=== PATIENT | female | born 1985 | race African-American/Black ===

== ENCOUNTER 2016-06-23 15:23 | Emergency (ER) | payer SELFPAY ==
[~2016-06-23 15:23] MED LIST: PERC7.5T13 PO
[2016-06-23 15:26] VITALS: BP 156/77; PULSE 93; RESP 16; TEMP 97.9; O2SAT 98
--- NOTE | 2016-06-23 16:24 | PD ---
HPI Chief Complaint: Chest Pain Time Seen by Provider: 16:16 Travel History International Travel<30 days: No Contact w/Intl Traveler<30days: No Traveled to known affect area: No History of Present Illness HPI The patient is a 30-year-old [place] female who presents emergency department for chest pain. The patient states she was driving her car when she developed anterior chest pain. The chest pain started at 1:30, has been present for almost 3 hours, constant, sharp, worse with inspiration, and minimally alleviated at rest. The patient states she feels short of breath because it hurts when she takes a deep breath, but denies any shortness of breath at rest or when not breathing deeply. The patient does note a dry nonproductive cough secondary to the pain. The patient denies any nausea, vomiting, or diaphoresis. The patient denies any history of pulmonary embolism , DVT, recent surgery, recent hospitalization, recent prolonged travel. The patient denies any edema of the lower extremities. The patient denies any history of hypertension, hyperlipidemia, diabetes, or previous CAD. The pain is worse with inspiration and palpation. PFSH Past Medical History Medical History: Denies Significant Hx Asthma: Yes Diminished Hearing: No Immunizations Current: Yes ?: Not : 0 Past Surgical History Surgical History: No Previous Surgery Social History Alcohol Use: No Tobacco Use: No Substance Use: No Allergies-Medications (Allergen,Severity, Reaction): Coded Allergies: No Known Allergies (Verified , 06/23/16) Reported Meds & Prescriptions Reported Meds & Active Scripts Active No Active Prescriptions or Reported Medications Review of Systems Except as stated in HPI: all other systems reviewed are Neg General / Constitutional: No: Fever HENT: No: Lightheadedness Cardiovascular: Positive: Chest Pain or Discomfort Respiratory: Positive: Cough, Shortness of Breath, Pleuritic Pain Gastrointestinal: No: Nausea, Vomiting, Abdominal Pain Musculoskeletal: No: Myalgias, Edema Skin: No Rash Neurologic: No: Dizziness Physical Exam Narrative GENERAL: Awake, alert, pleasant 30-year-old female who appears her stated age and is in no acute respiratory distress. SKIN: Warm and dry. HEAD: Atraumatic. Normocephalic. EYES: Pupils equal and round. No scleral icterus. No injection or drainage. ENT: No nasal bleeding or discharge. Mucous membranes pink and moist. NECK: Trachea midline. No JVD. CARDIOVASCULAR: Regular rate and rhythm. No murmur appreciated. Palpation of the sternal border bilaterally reproduces pain. RESPIRATORY: No accessory muscle use. Clear to auscultation. Breath sounds equal bilaterally. GASTROINTESTINAL: Abdomen soft, obese, no rebound tenderness. MUSCULOSKELETAL: No obvious deformities. No clubbing. No cyanosis. No edema. Calves are soft bilaterally. NEUROLOGICAL: Awake and alert. No obvious cranial nerve deficits. Motor grossly within normal limits. Normal speech. PSYCHIATRIC: Appropriate mood and affect; insight and judgment normal. Data Data Last Documented VS Vital Signs Date Time Temp Pulse Resp B/P Pulse Ox O2 Delivery O2 Flow Rate FiO2 06/23/16 16:18 100 2 06/23/16 16:14 73 20 Room Air 06/23/16 15:26 97.9 156/77 Orders Electrocardiogram (06/23/16 15:27) Basic Metabolic Panel (Bmp) (06/23/16 16:16) Ckmb (Isoenzyme) Profile (06/23/16 16:16) Complete Blood Count With Diff (06/23/16 16:16) Comprehensive Metabolic Panel (06/23/16 16:16) D-Dimer (06/23/16 16:16) Magnesium (Mg) (06/23/16 16:16) Prothrombin Time / Inr (Pt) (06/23/16 16:16) Act Partial Throm Time (Ptt) (06/23/16 16:16) Troponin I (06/23/16 16:16) Chest, Single Ap (06/23/16 16:16) Ecg Monitoring (06/23/16 16:16) Bilateral Bp Monitoring (06/23/16 16:16) Iv Access Insert/Monitor (06/23/16 16:16) Oximetry (06/23/16 16:16) Oxygen Administration (06/23/16 16:16) Morphine Inj (Morphine Inj) (06/23/16 16:30) Sodium Chloride 0.9% Flush (Ns Flush) (06/23/16 16:30) Sodium Chlorid 0.9% 500 Ml Inj (Ns 500 M (06/23/16 16:30) Ondansetron Inj (Zofran Inj) (06/23/16 16:30) Ketorolac Inj (Toradol Inj) (06/23/16 16:30) CKMB (06/23/16 16:20) CKMB% (06/23/16 16:20) Labs Laboratory Tests Test 06/23/16 16:20 White Blood Count 10.6 TH/MM3 Red Blood Count 4.66 MIL/MM3 Hemoglobin 12.2 GM/DL Hematocrit 37.7 % Mean Corpuscular Volume 80.8 FL Mean Corpuscular Hemoglobin 26.1 PG Mean Corpuscular Hemoglobin 32.3 % Concent Red Cell Distribution Width 14.8 % Platelet Count 309 TH/MM3 Mean Platelet Volume 8.9 FL Neutrophils (%) (Auto) 64.1 % Lymphocytes (%) (Auto) 26.4 % Monocytes (%) (Auto) 6.4 % Eosinophils (%) (Auto) 2.6 % Basophils (%) (Auto) 0.5 % Neutrophils # (Auto) 6.8 TH/MM3 Lymphocytes # (Auto) 2.8 TH/MM3 Monocytes # (Auto) 0.7 TH/MM3 Eosinophils # (Auto) 0.3 TH/MM3 Basophils # (Auto) 0.1 TH/MM3 CBC Comment DIFF FINAL Differential Comment Prothrombin Time 11.4 SEC Prothromb Time International 1.0 RATIO Ratio Activated Partial 30.7 SEC Thromboplast Time D-Dimer Quantitative (PE/DVT) 0.25 MG/L FEU Sodium Level 142 MEQ/L Potassium Level 3.6 MEQ/L Chloride Level 105 MEQ/L Carbon Dioxide Level 31.8 MEQ/L Anion Gap 5 MEQ/L Blood Urea Nitrogen 8 MG/DL Creatinine 0.79 MG/DL Estimat Glomerular Filtration 103 ML/MIN Rate Random Glucose 77 MG/DL Calcium Level 8.3 MG/DL Magnesium Level 1.9 MG/DL Total Bilirubin 0.5 MG/DL Aspartate Amino Transf 9 U/L (AST/SGOT) Alanine Aminotransferase 15 U/L (ALT/SGPT) Alkaline Phosphatase 74 U/L Total Creatine Kinase 213 U/L Creatine Kinase MB 0.7 NG/ML Creatine Kinase MB % 0.3 % Troponin I LESS THAN 0.02 NG/ML Total Protein 7.5 GM/DL Albumin 3.0 GM/DL [facility] Medical Decision Making Medical Screen Exam Complete: Yes Emergency Medical Condition: Yes Medical Record Reviewed: Yes Interpretation(s) EKG reveals normal sinus rhythm with a rate 89. No ischemic changes or ectopy noted. Laboratory Tests Test 06/23/16 16:20 White Blood Count 10.6 TH/MM3 Red Blood Count 4.66 MIL/MM3 Hemoglobin 12.2 GM/DL Hematocrit 37.7 % Mean Corpuscular Volume 80.8 FL Mean Corpuscular Hemoglobin 26.1 PG Mean Corpuscular Hemoglobin 32.3 % Concent Red Cell Distribution Width 14.8 % Platelet Count 309 TH/MM3 Mean Platelet Volume 8.9 FL Neutrophils (%) (Auto) 64.1 % Lymphocytes (%) (Auto) 26.4 % Monocytes (%) (Auto) 6.4 % Eosinophils (%) (Auto) 2.6 % Basophils (%) (Auto) 0.5 % Neutrophils # (Auto) 6.8 TH/MM3 Lymphocytes # (Auto) 2.8 TH/MM3 Monocytes # (Auto) 0.7 TH/MM3 Eosinophils # (Auto) 0.3 TH/MM3 Basophils # (Auto) 0.1 TH/MM3 CBC Comment DIFF FINAL Differential Comment Prothrombin Time 11.4 SEC Prothromb Time International 1.0 RATIO Ratio Activated Partial 30.7 SEC Thromboplast Time D-Dimer Quantitative (PE/DVT) 0.25 MG/L FEU Sodium Level 142 MEQ/L Potassium Level 3.6 MEQ/L Chloride Level 105 MEQ/L Carbon Dioxide Level 31.8 MEQ/L Anion Gap 5 MEQ/L Blood Urea Nitrogen 8 MG/DL Creatinine 0.79 MG/DL Estimat Glomerular Filtration 103 ML/MIN Rate Random Glucose 77 MG/DL Calcium Level 8.3 MG/DL Magnesium Level 1.9 MG/DL Total Bilirubin 0.5 MG/DL Aspartate Amino Transf 9 U/L (AST/SGOT) Alanine Aminotransferase 15 U/L (ALT/SGPT) Alkaline Phosphatase 74 U/L Total Creatine Kinase 213 U/L Creatine Kinase MB 0.7 NG/ML Creatine Kinase MB % 0.3 % Troponin I LESS THAN 0.02 NG/ML Total Protein 7.5 GM/DL Albumin 3.0 GM/DL Chest x-ray reveals under aerated, otherwise negative. Differential Diagnosis Differential diagnosis includes costochondritis, pleurisy, pulmonary embolism, acute coronary syndrome, GERD, esophageal spasm, pericarditis, myocarditis. Narrative Course IV was established, labs are drawn and sent, and the patient was placed on cardiac telemetry monitoring and continuous pulse oximetry monitoring. EKG was ordered and interpreted. Chest x-ray was ordered. The patient was administered Toradol, morphine, and Zofran. EKG is unremarkable. D-dimer was ordered. The patient's d-dimer is negative, thus no CT pulmonary angiogram was ordered. Chest x-rays unremarkable. EKG reveals no ischemic changes or ectopy noted. Troponin and CPK are negative, patient's pain started 3 hours prior to arrival, therefore, no 3 hour level was ordered. The patient has reproducible chest pain, most likely costochondritis with negative d-dimer. The patient will be discharged home on ibuprofen. She will be provided a copy of her EKG, chest x-ray report, and labs at discharge. Diagnosis Primary Impression: Costochondritis Additional Impression: Atypical chest pain Patient Instructions: General Instructions Additional Instructions: Medications as directed. Follow-up with your primary physician. Return if symptoms worsen or progress. Work excuse for today. Med/Other Pt SpecificInfo: Prescription(s) given Scripts Ibuprofen 400 Mg [id number] Mg PO Q6H PRN (PAIN SCALE 1 TO 10) #20 TAB Ref 0 Prov:Clifford Duncan MD 06/23/16 Disposition: DISCHARGE HOME Condition: Stable Clifford Duncan MD Jun 23, 2016 16:24
[2016-06-23] MEDS ORDERED: MORPHINE SULFATE 4 MG/ML INJ IV PUSH ONE (16:30)
[2016-06-23] MEDS ORDERED: KETOROLAC TROMETHAMINE 30 MG/ML (IVP) VIAL IV PUSH ONE (16:30)
[2016-06-23] MEDS ORDERED: SODIUM CHLORID 0.9% 500 ML INJ 500 ML IV ONE (16:30)
[2016-06-23] MEDS ORDERED: SODIUM CHLORIDE 0.9% FLUSH 5 ML FLUSH IVF PRN (16:30)
[2016-06-23] MEDS ORDERED: ONDANSETRON HCL 4 MG/2 ML VIAL IV PUSH ONE (16:30)
[2016-06-23 16:31] LABS: AUTOMATED NEUTROPHIL # 6.8 TH/MM3 (1.8-7.7); BASOPHIL # 0.1 TH/MM3 (0-0.2); BASOPHIL % 0.5 % (0.0-2.0); EOSINOPHIL # 0.3 TH/MM3 (0-0.4); EOSINOPHIL % 2.6 % (0.0-4.0); HEMATOCRIT 37.7 % (35.0-46.0); HEMO FLAGS DIFF FINAL; LYMPH % 26.4 % (9.0-44.0); LYMPHOCYTE # 2.8 TH/MM3 (1.0-4.8); MEAN CELL VOLUME 80.8 FL (80.0-100.0); MEAN CORPUSCULAR HEMOGLOBIN 26.1 PG (27.0-34.0); MEAN CORPUSCULAR HGB CONC 32.3 % (32.0-36.0); MONO % 6.4 % (0.0-8.0); NEUT % 64.1 % (16.0-70.0); PLATELET COUNT 309 TH/MM3 (150-450); RED BLOOD COUNT 4.66 MIL/MM3 (4.00-5.30); RED CELL DISTRIBUTION WIDTH 14.8 % (11.6-17.2); WHITE BLOOD COUNT 10.6 TH/MM3 (4.0-11.0)
[2016-06-23 16:45] LABS: APTT (PATIENT) 30.7 SEC (24.3-30.1); PROTHROMBIN TIME - PATIENT 11.4 SEC (9.8-11.6)
[2016-06-23 17:10] VITALS: O2SAT 100
[2016-06-23 17:10] LABS: ALT (GPT) 15 U/L (10-53); ANION GAP 5 MEQ/L (5-15); AST (GOT) 9 U/L (15-37); BICARBONATE 31.8 MEQ/L (21.0-32.0); BLOOD UREA NITROGEN 8 MG/DL (7-18); CHLORIDE 105 MEQ/L (98-107); GLOMERULAR FILTRATION RATE 103 ML/MIN (>89); MAGNESIUM 1.9 MG/DL (1.5-2.5); POTASSIUM 3.6 MEQ/L (3.5-5.1); SODIUM (NA) 142 MEQ/L (136-145)
[2016-06-23 17:13] LABS: ALKALINE PHOSPHATASE 74 U/L (45-117); CREATINE KINASE 213 U/L (26-192); TOTAL BILIRUBIN ADULT 0.5 MG/DL (0.2-1.0)
--- NOTE | 2016-06-23 17:20 | RADRPT ---
EXAM DATE/TIME: 06/23/2016 16:25 [facility] COMPARISON: CHEST SINGLE AP, October 09, 2013, 1:11. INDICATIONS : Chest pain. MEDICAL HISTORY : Asthma. SURGICAL HISTORY : None. ENCOUNTER: Initial ACUITY: 1 day PAIN SCORE: 10/10 LOCATION: Bilateral chest FINDINGS: The lungs are under aerated but clear. Heart is minimally enlarged. Pulmonary vascularity is normal . Portion of the bony skeleton visualized is unremarkable. CONCLUSION: Under aerated; otherwise, negative. Yaya Corona MD FACR on June 23, 2016 at 17:13 Board Certified Radiologist. This report was verified electronically.
[2016-06-23 17:26] LABS: CKMB 0.7 NG/ML (0.5-3.6)
[2016-06-23] MEDS ORDERED: IBUP400T20 PO (17:56)
--- NOTE | 2016-06-24 13:36 | EKG ---
Date Performed: 06/23/2016 Time Performed: 15:32:03 PTAGE: 30 years EKG: Sinus rhythm NORMAL ECG Compared to prior tracing no significant change PREVIOUS TRACING : 10/08/2013 23.58 DOCTOR: Sammy Maria Interpretating Date/Time 06/24/2016 13:35:00
== END 2016-06-23 18:40 | disposition home or self-care (01) ==
LOC: NEPE 15:23
DX: M94.0 Chondrocostal junction syndrome [Tietze] (principal); J45.909 Unspecified asthma, uncomplicated
CPT/HCPCS: 71010; 80053; 82550; 82552; 83735; 84484; 85025; 85379; 85610; 85730; 93005; 96374; 96375; 99285; J1885; J2270; J2405; J7040

== ENCOUNTER 2016-11-27 13:21 | Emergency (ER) | payer SELFPAY ==
[~2016-11-27] VITALS: Ht 162.6 cm; Wt 223.0 kg
[~2016-11-27 13:21] MED LIST changes: +IBUP400T20 PO; -PERC7.5T13 PO
[2016-11-27 13:22] VITALS: BP 179/89; PULSE 89; RESP 17; TEMP 97.7; O2SAT 99
[2016-11-27] MEDS ORDERED: IBUPROFEN 600 MG TAB PO ONE (14:30)
[2016-11-27] MEDS ORDERED: SODIUM CHLORIDE 0.9% FLUSH 10 ML FLUSH IVF PRN (14:30)
--- NOTE | 2016-11-27 14:51 | RADRPT ---
EXAM DATE/TIME: 11/27/2016 14:45 [facility] COMPARISON: CHEST SINGLE AP, June 23, 2016, 16:25. INDICATIONS : Chest pain. MEDICAL HISTORY : None. SURGICAL HISTORY : None. ENCOUNTER: Initial ACUITY: 4 - 6 days PAIN SCORE: 8/10 LOCATION: Bilateral chest FINDINGS: A single view of the chest has been obtained with a moderate inspiratory effort. The cardiac silhouet te is borderline enlarged for an AP portable chest x-ray. Lungs are grossly clear. Osseous structure s are intact. CONCLUSION: No acute disease. Mitesh Zeng MD on November 27, 2016 at 14:46 Board Certified Radiologist. This report was verified electronically.
[2016-11-27 14:56] LABS: AUTOMATED NEUTROPHIL # 5.8 TH/MM3 (1.8-7.7); BASOPHIL % 0.3 % (0.0-2.0); EOSINOPHIL # 0.2 TH/MM3 (0-0.4); EOSINOPHIL % 2.2 % (0.0-4.0); HEMATOCRIT 38.7 % (35.0-46.0); HEMO FLAGS DIFF FINAL; LYMPH % 30.1 % (9.0-44.0); LYMPHOCYTE # 2.8 TH/MM3 (1.0-4.8); MEAN CELL VOLUME 79.4 FL (80.0-100.0); MEAN CORPUSCULAR HEMOGLOBIN 25.2 PG (27.0-34.0); MEAN CORPUSCULAR HGB CONC 31.8 % (32.0-36.0); MONO % 6.5 % (0.0-8.0); NEUT % 60.9 % (16.0-70.0); PLATELET COUNT 326 TH/MM3 (150-450); RED BLOOD COUNT 4.88 MIL/MM3 (4.00-5.30); RED CELL DISTRIBUTION WIDTH 15.4 % (11.6-17.2); WHITE BLOOD COUNT 9.5 TH/MM3 (4.0-11.0)
[2016-11-27 14:58] LABS: APTT (PATIENT) 29.4 SEC (24.3-30.1); PROTHROMBIN TIME - PATIENT 11.4 SEC (9.8-11.6)
[2016-11-27 15:06] LABS: ANION GAP 3 MEQ/L (5-15); BICARBONATE 33.9 MEQ/L (21.0-32.0); BLOOD UREA NITROGEN 7 MG/DL (7-18); CHLORIDE 104 MEQ/L (98-107); GLOMERULAR FILTRATION RATE 87 ML/MIN (>89); POTASSIUM 4.1 MEQ/L (3.5-5.1); SODIUM (NA) 141 MEQ/L (136-145)
[2016-11-27 15:09] LABS: CREATINE KINASE 187 U/L (26-192)
[2016-11-27 15:21] LABS: CKMB LESS THAN 0.5 NG/ML (0.5-3.6)
--- NOTE | 2016-11-27 15:36 | PD ---
HPI Chief Complaint: Chest Pain Time Seen by Provider: 14:03 Travel History International Travel<30 days: No Contact w/Intl Traveler<30days: No Traveled to known affect area: No History of Present Illness HPI 31yo F with PMH of obesity presents to the ED with c/o midsternal chest pain today. Pt is worst with deep breathing and palpation. Associated with some sob. +Cough. Denies any fever, n/v, abdominal pain, focal weakness or numbness. Denies any history of PE, DVT, oral contraceptive. PFSH Past Medical History Asthma: Yes Diminished Hearing: No Immunizations Current: Yes ?: Not LMP: 11/19/16 : 0 Para: 0 Miscarriage: 0 : 0 Past Surgical History Surgical History: No Previous Surgery Social History Alcohol Use: No Tobacco Use: No Substance Use: No Allergies-Medications (Allergen,Severity, Reaction): Coded Allergies: No Known Allergies (Verified , 11/27/16) Reported Meds & Prescriptions Reported Meds & Active Scripts Active Review of Systems Except as stated in HPI: all other systems reviewed are Neg Physical Exam Narrative GENERAL: 31yo F not in distress. SKIN: Focused skin assessment warm/dry. HEAD: Atraumatic. Normocephalic. EYES: Pupils equal and round. No scleral icterus. No injection or drainage. ENT: No nasal bleeding or discharge. Mucous membranes pink and moist. NECK: Trachea midline. No JVD. CARDIOVASCULAR: Regular rate and rhythm. No murmur appreciated. CHEST WALL: +TTP sternum. No rash. RESPIRATORY: No accessory muscle use. Clear to auscultation. Breath sounds equal bilaterally. GASTROINTESTINAL: Abdomen soft, non-tender, nondistended. MUSCULOSKELETAL: No obvious deformities. No clubbing. No cyanosis. No edema. NEUROLOGICAL: Awake and alert. No obvious cranial nerve deficits. Motor grossly within normal limits. Normal speech. PSYCHIATRIC: Appropriate mood and affect; insight and judgment normal. Data Data Last Documented VS Vital Signs Date Time Temp Pulse Resp B/P Pulse Ox O2 Delivery O2 Flow Rate FiO2 11/27/16 13:22 97.7 89 17 179/89 99 Orders Electrocardiogram (11/27/16 14:22) Basic Metabolic Panel (Bmp) (11/27/16 14:22) Ckmb (Isoenzyme) Profile (11/27/16 14:22) Complete Blood Count With Diff (11/27/16 14:22) D-Dimer (11/27/16 14:22) Magnesium (Mg) (11/27/16 14:22) Prothrombin Time / Inr (Pt) (11/27/16 14:22) Act Partial Throm Time (Ptt) (11/27/16 14:22) Troponin I (11/27/16 14:22) Chest, Single Ap (11/27/16 14:22) Ecg Monitoring (11/27/16 14:22) Bilateral Bp Monitoring (11/27/16 14:22) Iv Access Insert/Monitor (11/27/16 14:22) Oximetry (11/27/16 14:22) Oxygen Administration (11/27/16 14:22) Sodium Chloride 0.9% Flush (Ns Flush) (11/27/16 14:30) Ibuprofen (Motrin) (11/27/16 14:30) CKMB (11/27/16 14:35) CKMB% (11/27/16 14:35) Bhcg Screen Qualitative (11/27/16 16:22) Ct Pulmonary Angiogram (11/27/16 ) Iohexol 350 Inj (Omnipaque 350 Inj) (11/27/16 17:34) Labs Laboratory Tests Test 11/27/16 14:35 White Blood Count 9.5 TH/MM3 Red Blood Count 4.88 MIL/MM3 Hemoglobin 12.3 GM/DL Hematocrit 38.7 % Mean Corpuscular Volume 79.4 FL Mean Corpuscular Hemoglobin 25.2 PG Mean Corpuscular Hemoglobin 31.8 % Concent Red Cell Distribution Width 15.4 % Platelet Count 326 TH/MM3 Mean Platelet Volume 9.0 FL Neutrophils (%) (Auto) 60.9 % Lymphocytes (%) (Auto) 30.1 % Monocytes (%) (Auto) 6.5 % Eosinophils (%) (Auto) 2.2 % Basophils (%) (Auto) 0.3 % Neutrophils # (Auto) 5.8 TH/MM3 Lymphocytes # (Auto) 2.8 TH/MM3 Monocytes # (Auto) 0.6 TH/MM3 Eosinophils # (Auto) 0.2 TH/MM3 Basophils # (Auto) 0.0 TH/MM3 CBC Comment DIFF FINAL Differential Comment Prothrombin Time 11.4 SEC Prothromb Time International 1.0 RATIO Ratio Activated Partial 29.4 SEC Thromboplast Time D-Dimer Quantitative (PE/DVT) 0.51 MG/L FEU Sodium Level 141 MEQ/L Potassium Level 4.1 MEQ/L Chloride Level 104 MEQ/L Carbon Dioxide Level 33.9 MEQ/L Anion Gap 3 MEQ/L Blood Urea Nitrogen 7 MG/DL Creatinine 0.91 MG/DL Estimat Glomerular Filtration 87 ML/MIN Rate Random Glucose 85 MG/DL Calcium Level 8.9 MG/DL Magnesium Level 2.0 MG/DL Total Creatine Kinase 187 U/L Creatine Kinase MB LESS THAN 0.5 NG/ML Troponin I LESS THAN 0.02 NG/ML Beta HCG, Qualitative LESS THAN 1 MIU/ML MDM Medical Decision Making Medical Screen Exam Complete: Yes Emergency Medical Condition: Yes Interpretation(s) EKG: NSR 89bpm. Normal axis. No ST segment or depression. Differential Diagnosis Musculoskeletal pain vs. PNA vs. PE Narrative Course 31yo F with atypical pleuritic chest pain. Pt is obese. Denies any cig smoking or family history of sudden cardiac . Labs reviewed, no leukocytosis. Troponin negative. negative. D-dimer is mildly elevated at 0.51. Will obtain CT angio to rule out PE. Pt given ibuprofen for pain. Pt has been seen multiple times before for atypical chest pain. CT angio showed no PE in main pulmonary artery. Technical limitations. Pt is saturating at 100% on RA. Chest pain is atypical and do not feel that it is cardiac. Instructed pt to follow up as outpatient. Diagnosis Primary Impression: Atypical chest pain Patient Instructions: General Instructions Departure Forms: Tests/Procedures Additional Instructions: Please follow up with your PMD in 3-7 days. Return to the ED if symptoms worsen. Med/Other Pt SpecificInfo: Prescription(s) given Scripts Ibuprofen 600 Mg [id number] Mg PO Q8HR PRN (PAIN) #20 TAB Ref 0 Prov:DaiYasmin DO 11/27/16 Disposition: 01 DISCHARGE HOME Condition: Stable Yasmin Dai DO Nov 27, 2016 15:35
--- NOTE | 2016-11-27 16:54 | EKG ---
Date Performed: 11/27/2016 Time Performed: 13:55:41 PTAGE: 31 years EKG: Sinus rhythm NORMAL ECG PREVIOUS TRACING : 06/23/2016 15.32 No significant change from previous tracing noted. DOCTOR: Law Hall Interpretating Date/Time 11/27/2016 16:51:04
[2016-11-27] MEDS ORDERED: IOHEXOL 350 MG/ML 10 ML VIAL (for RAD DIAG) IV ONE (17:34)
--- NOTE | 2016-11-27 18:29 | RADRPT ---
EXAM DATE/TIME: 11/27/2016 17:23 [facility] COMPARISON: No previous studies available for comparison. INDICATIONS : Chest pain with shortness of breath. IV CONTRAST: 75 cc Omnipaque 350 (iohexol) IV RADIATION DOSE: 38.54 CTDIvol (mGy) MEDICAL HISTORY : Asthma SURGICAL HISTORY : None. ENCOUNTER: Initial ACUITY: 1 day PAIN SCALE: 5/10 LOCATION: Chest TECHNIQUE: Volumetric scanning of the chest was performed using a pulmonary embolism protocol MIP images were re constructed. Using automated exposure control and adjustment of the mA and/or kV according to patien t size, radiation dose was kept as low as reasonably achievable to obtain optimal diagnostic quality images. FINDINGS: This study is limited secondary to technical difficulties. The patient's weight required her to be p laced on the slowest CT scanner. It also needed to be manually moved for the corporate human resources manager image. The technique was maxi mized for the patient's size. The opacification of the pulmonary arteries is poor. The main pulmonary artery and main right and le ft pulmonary arteries are opacified and free of thrombus. The more distal branches cannot be evaluated. Given the technical limitations however it is thought that little value would be gained by repeating the scan. The lungs themselves demonstrate some mosaic perfusion pattern, a significant consolidation is not seen. Adeno eleni is not seen. CONCLUSION: Technically limited study. A pulmonary embolus involving the main pulmonary artery and main right an d left pulmonary arteries is not seen. The more distal branches cannot be seen. Mitesh Zeng MD on November 27, 2016 at 17:35 Board Certified Radiologist. This report was verified electronically.
[2016-11-27] MEDS ORDERED: IBUP-232 PO (18:51)
== END 2016-11-27 19:38 | disposition home or self-care (01) ==
LOC: NEPE 13:21
DX: R07.89 Other chest pain (principal)
CPT/HCPCS: 71010; 71275; 80048; 82550; 82552; 83735; 84484; 84703; 85025; 85379; 85610; 85730; 93005; 99285; Q9967

== ENCOUNTER 2017-11-23 13:19 | Emergency (ER) | payer SELFPAY ==
[~2017-11-23] VITALS: Ht 172.7 cm; Wt 224.0 kg
[~2017-11-23 13:19] MED LIST changes: +IBUP-232 PO; -IBUP400T20 PO
[2017-11-23 13:29] VITALS: BP 139/85; PULSE 110; TEMP 97.5; O2SAT 98
[2017-11-23 13:33] VITALS: BP 139/85; PULSE 110; RESP 18; TEMP 97.5; O2SAT 98
[2017-11-23] MEDS ORDERED: PAIN MED (15:17)
[2017-11-23] MEDS ORDERED: TRAM50TA PO (15:17)
[2017-11-23] MEDS ORDERED: SODIUM CHLORIDE 0.9% FLUSH 10 ML FLUSH IVF PRN (15:30)
[2017-11-23] MEDS ORDERED: KETOROLAC TROMETHAMINE 30 MG/ML (IVP) VIAL IV PUSH ONE (15:30)
[2017-11-23] MEDS ORDERED: SODIUM CHLORID 0.9% 500 ML INJ 500 ML IV ONE (15:30)
--- NOTE | 2017-11-23 15:41 | PD ---
HPI Chief Complaint: Chest Pain Time Seen by Provider: 15:12 Travel History International Travel<30 days: No Contact w/Intl Traveler<30days: No Traveled to known affect area: No History of Present Illness HPI The patient is a 32-year-old -[place] female who presents to the emergency department for back pain that radiates to the anterior aspect of the chest. The patient states the back pain started 2 days ago, is located in the mid to upper thoracic region, radiates around the chest to the anterior aspect as well as to the arms bilaterally. The patient occasionally feels like she is having numbness of the arms. The chest pain is anterior, worse with coughing and palpation. The patient denies any trauma to the back, but does state she had a previous slip and fall at work. The patient does note mild shortness of breath secondary to the pain. The patient denies any history of coronary artery disease, pulmonary embolism, recent surgery, recent hospitalizations, or recent travel. The cough is dry mostly nonproductive. She also complains of a mild sore throat. The patient denies any nausea, vomiting, diarrhea, or abdominal pain. She denies any significant edema to lower extremities. Symptoms are moderate. PFSH Past Medical History Asthma: Yes Diminished Hearing: No Immunizations Current: Yes ?: Not LMP: 11/05/17 : 0 Para: 0 Miscarriage: 0 : 0 Past Surgical History Surgical History: No Previous Surgery Social History Alcohol Use: No Tobacco Use: No Substance Use: No Allergies-Medications (Allergen,Severity, Reaction): Coded Allergies: No Known Allergies (Verified , 11/27/16) Reported Meds & Prescriptions Reported Meds & Active Scripts Active Reported [other pain med] Tramadol (Tramadol HCl) 50 Mg Tab 200 Mg PO Q6H PRN Review of Systems Except as stated in HPI: all other systems reviewed are Neg General / Constitutional: No: Fever HENT: Positive: Sore Throat Cardiovascular: Positive: Chest Pain or Discomfort Respiratory: Positive: Shortness of Breath Gastrointestinal: No: Nausea, Vomiting, Abdominal Pain Musculoskeletal: No: Edema Skin: No Rash Physical Exam Narrative GENERAL: Awake, alert, pleasant 32-year-old female who appears her stated age and is in no acute respiratory distress. SKIN: Focused skin assessment warm/dry. No stigmata of shingles noted. HEAD: Atraumatic. Normocephalic. EYES: Pupils equal and round. No scleral icterus. No injection or drainage. ENT: No nasal bleeding or discharge. Mucous membranes pink and moist. NECK: Trachea midline. No JVD. CARDIOVASCULAR: Regular rate and rhythm. No murmur appreciated. Heart rate in the 90s. Palpation the chest wall reproduces symptoms. RESPIRATORY: No accessory muscle use. Clear to auscultation. Breath sounds equal bilaterally. GASTROINTESTINAL: Abdomen soft, non-tender, nondistended. Back: Mild tenderness of the mid thoracic and paravertebral muscles of the upper thoracic region. MUSCULOSKELETAL: No obvious deformities. No clubbing. No cyanosis. No edema. NEUROLOGICAL: Awake and alert. No obvious cranial nerve deficits. Motor grossly within normal limits. Normal speech. PSYCHIATRIC: Appropriate mood and affect; insight and judgment normal. Data Data Last Documented VS Vital Signs Date Time Temp Pulse Resp B/P (MAP) Pulse Ox O2 Delivery O2 Flow Rate FiO2 11/23/17 16:04 92 16 130/76 (94) 100 Room Air 11/23/17 13:33 97.5 Orders Orders Electrocardiogram (11/23/17 ) Electrocardiogram (11/23/17 15:22) Ckmb (Isoenzyme) Profile (11/23/17 15:22) Complete Blood Count With Diff (11/23/17 15:22) Comprehensive Metabolic Panel (11/23/17 15:22) D-Dimer (11/23/17 15:22) Magnesium (Mg) (11/23/17 15:22) Prothrombin Time / Inr (Pt) (11/23/17 15:22) Act Partial Throm Time (Ptt) (11/23/17 15:22) Troponin I (11/23/17 15:22) Ecg Monitoring (11/23/17 15:22) Bilateral Bp Monitoring (11/23/17 15:22) Iv Access Insert/Monitor (11/23/17 15:22) Oximetry (11/23/17 15:22) Oxygen Administration (11/23/17 15:22) Sodium Chloride 0.9% Flush (Ns Flush) (11/23/17 15:30) Sodium Chlorid 0.9% 500 Ml Inj (Ns 500 M (11/23/17 15:30) Chest, Pa & Lat (11/23/17 15:22) Spine, Thoracic - Lateral Only (11/23/17 ) Ketorolac Inj (Toradol Inj) (11/23/17 15:30) CKMB (11/23/17 15:35) CKMB% (11/23/17 15:35) Group A Rapid Strep Screen (11/23/17 17:07) Strep Culture (Group A) (11/23/17 17:05) Labs Laboratory Tests Test 11/23/17 15:35 White Blood Count 6.2 TH/MM3 Red Blood Count 4.44 MIL/MM3 Hemoglobin 11.1 GM/DL Hematocrit 32.9 % Mean Corpuscular Volume 74.2 FL Mean Corpuscular Hemoglobin 25.0 PG Mean Corpuscular Hemoglobin Concent 33.7 % Red Cell Distribution Width 16.6 % Platelet Count 320 TH/MM3 Mean Platelet Volume 8.6 FL Neutrophils (%) (Auto) 56.9 % Lymphocytes (%) (Auto) 28.5 % Monocytes (%) (Auto) 9.2 % Eosinophils (%) (Auto) 4.6 % Basophils (%) (Auto) 0.8 % Neutrophils # (Auto) 3.5 TH/MM3 Lymphocytes # (Auto) 1.8 TH/MM3 Monocytes # (Auto) 0.6 TH/MM3 Eosinophils # (Auto) 0.3 TH/MM3 Basophils # (Auto) 0.0 TH/MM3 CBC Comment DIFF FINAL Differential Comment Prothrombin Time 11.3 SEC Prothromb Time International Ratio 1.1 RATIO Activated Partial Thromboplast Time 29.6 SEC D-Dimer Quantitative (PE/DVT) 0.34 MG/L FEU Blood Urea Nitrogen 5 MG/DL Creatinine 0.84 MG/DL Random Glucose 96 MG/DL Total Protein 7.9 GM/DL Albumin 2.9 GM/DL Calcium Level 8.1 MG/DL Magnesium Level 2.0 MG/DL Alkaline Phosphatase 71 U/L Aspartate Amino Transf (AST/SGOT) 16 U/L Alanine Aminotransferase (ALT/SGPT) 18 U/L Total Bilirubin 0.3 MG/DL Sodium Level 142 MEQ/L Potassium Level 4.2 MEQ/L Chloride Level 108 MEQ/L Carbon Dioxide Level 27.1 MEQ/L Anion Gap 7 MEQ/L Estimat Glomerular Filtration Rate 95 ML/MIN Total Creatine Kinase 177 U/L Creatine Kinase MB LESS THAN 0.5 NG/ML Troponin I LESS THAN 0.02 NG/ML MDM Medical Decision Making Medical Screen Exam Complete: Yes Emergency Medical Condition: Yes Medical Record Reviewed: Yes Interpretation(s) Last Impressions Chest X-Ray 11/23/17 1522 Signed Impressions: CONCLUSION: No active disease. Thoracic Spine X-Ray 11/23/17 0000 Signed Impressions: CONCLUSION: Early degenerative disc disease. No acute findings. Laboratory Tests Test 11/23/17 15:35 White Blood Count 6.2 TH/MM3 Red Blood Count 4.44 MIL/MM3 Hemoglobin 11.1 GM/DL Hematocrit 32.9 % Mean Corpuscular Volume 74.2 FL Mean Corpuscular Hemoglobin 25.0 PG Mean Corpuscular Hemoglobin Concent 33.7 % Red Cell Distribution Width 16.6 % Platelet Count 320 TH/MM3 Mean Platelet Volume 8.6 FL Neutrophils (%) (Auto) 56.9 % Lymphocytes (%) (Auto) 28.5 % Monocytes (%) (Auto) 9.2 % Eosinophils (%) (Auto) 4.6 % Basophils (%) (Auto) 0.8 % Neutrophils # (Auto) 3.5 TH/MM3 Lymphocytes # (Auto) 1.8 TH/MM3 Monocytes # (Auto) 0.6 TH/MM3 Eosinophils # (Auto) 0.3 TH/MM3 Basophils # (Auto) 0.0 TH/MM3 CBC Comment DIFF FINAL Differential Comment Prothrombin Time 11.3 SEC Prothromb Time International Ratio 1.1 RATIO Activated Partial Thromboplast Time 29.6 SEC D-Dimer Quantitative (PE/DVT) 0.34 MG/L FEU Blood Urea Nitrogen 5 MG/DL Creatinine 0.84 MG/DL Random Glucose 96 MG/DL Total Protein 7.9 GM/DL Albumin 2.9 GM/DL Calcium Level 8.1 MG/DL Magnesium Level 2.0 MG/DL Alkaline Phosphatase 71 U/L Aspartate Amino Transf (AST/SGOT) 16 U/L Alanine Aminotransferase (ALT/SGPT) 18 U/L Total Bilirubin 0.3 MG/DL Sodium Level 142 MEQ/L Potassium Level 4.2 MEQ/L Chloride Level 108 MEQ/L Carbon Dioxide Level 27.1 MEQ/L Anion Gap 7 MEQ/L Estimat Glomerular Filtration Rate 95 ML/MIN Total Creatine Kinase 177 U/L Creatine Kinase MB LESS THAN 0.5 NG/ML Troponin I LESS THAN 0.02 NG/ML Date/Time Source Procedure Growth Status 11/23/17 17:05 Throat Group A Streptococcus Screen Pending Received 11/23/17 17:05 Throat Group A Streptococcus Screen (BOB) - Final Complete Differential Diagnosis Differential diagnosis includes thoracic compression fracture, costochondritis, pulmonary embolism, bronchitis, pneumonia, strep pharyngitis, shingles, atypical chest pain. Narrative Course IV was established, labs are drawn and sent, the patient was placed on cardiac telemetry monitoring and continuous pulse oximetry monitoring. EKG was ordered and interpreted. Chest x-ray and lateral thoracic spine x-rays were obtained. D-dimer was sent to lab. The patient was administered Toradol 30 mg intravenously. Strep screen is negative. D-dimer is negative, therefore, no indication for CT pulmonary angiogram. Troponin and CPK are unremarkable. X- ray of the thoracic spine reveals degenerative changes but no compression fracture. Chest x-ray is unremarkable. The patient appears to have back pain with radiculopathy and musculoskeletal pain. The patient will be discharged home in ibuprofen. She is stable for outpatient follow-up. Diagnosis Primary Impression: Atypical chest pain Additional Impression: Costochondritis Patient Instructions: General Instructions Additional Instructions: Please provide the patient a copy of her labs and x-ray results at discharge. Follow-up with her primary physician. Return if symptoms worsen or progress. Med/Other Pt SpecificInfo: Prescription(s) given Scripts Ibuprofen (Ibuprofen) 600 Mg Tab 600 MG PO Q6H Y for Pain/Inflammation, #20 TAB 0 Refills Prov: Clifford Duncan MD 11/23/17 Disposition: 01 DISCHARGE HOME Condition: Stable Clifford Duncan MD Nov 23, 2017 15:41
[2017-11-23 15:59] LABS: AUTOMATED NEUTROPHIL # 3.5 TH/MM3 (1.8-7.7); BASOPHIL % 0.8 % (0.0-2.0); EOSINOPHIL # 0.3 TH/MM3 (0-0.4); EOSINOPHIL % 4.6 % (0.0-4.0); HEMATOCRIT 32.9 % (35.0-46.0); HEMOGLOBIN 11.1 GM/DL (11.6-15.3); LYMPH % 28.5 % (9.0-44.0); LYMPHOCYTE # 1.8 TH/MM3 (1.0-4.8); MEAN CELL VOLUME 74.2 FL (80.0-100.0); MEAN CORPUSCULAR HGB CONC 33.7 % (32.0-36.0); MEAN PLATELET VOLUME 8.6 FL (7.0-11.0); MONO % 9.2 % (0.0-8.0); MONOCYTE # 0.6 TH/MM3 (0-0.9); NEUT % 56.9 % (16.0-70.0); PLATELET COUNT 320 TH/MM3 (150-450); RED BLOOD COUNT 4.44 MIL/MM3 (4.00-5.30); RED CELL DISTRIBUTION WIDTH 16.6 % (11.6-17.2); WHITE BLOOD COUNT 6.2 TH/MM3 (4.0-11.0)
[2017-11-23 16:04] VITALS: BP 130/76; PULSE 92; RESP 16; O2SAT 100
[2017-11-23 16:04] LABS: ALBUMIN 2.9 GM/DL (3.4-5.0); ALT (GPT) 18 U/L (10-53); AST (GOT) 16 U/L (15-37); BICARBONATE 27.1 MEQ/L (21.0-32.0); BLOOD UREA NITROGEN 5 MG/DL (7-18); CALCIUM 8.1 MG/DL (8.5-10.1); CHLORIDE 108 MEQ/L (98-107); CREATININE 0.84 MG/DL (0.50-1.00); GLOMERULAR FILTRATION RATE 95 ML/MIN (>89); GLUCOSE,RANDOM 96 MG/DL (74-106); SODIUM (NA) 142 MEQ/L (136-145)
[2017-11-23 16:08] LABS: ALKALINE PHOSPHATASE 71 U/L (45-117); INTERNATIONAL NORMALIZED RATIO 1.1 RATIO; PROTHROMBIN TIME - PATIENT 11.3 SEC (9.8-11.6); TOTAL BILIRUBIN ADULT 0.3 MG/DL (0.2-1.0); TOTAL PROTEIN 7.9 GM/DL (6.4-8.2); TROPONIN I LESS THAN 0.02 NG/ML (0.02-0.05)
[2017-11-23 16:13] LABS: D-DIMER 0.34 MG/L FEU (0.00-0.50)
--- NOTE | 2017-11-23 16:27 | RADRPT ---
EXAM DATE: 11/23/2017 4:05 PM EDT AGE/SEX: 32 years / Female INDICATIONS: Pain. Fell one week ago. CLINICAL DATA: This is the patient's initial encounter. Patient reports that signs and symptoms have been present for 2 days and indicates a pain score of 8/10. MEDICAL/SURGICAL HISTORY: . Asthma None. COMPARISON: No prior exams available for comparison. FINDINGS: PA and lateral views of the chest demonstrate the lungs to be symmetrically aerated without evidence of mass, infiltrate or effusion. The cardiomediastinal contours are unremarkable. Osseous structures are intact. CONCLUSION: No active disease. Electronically signed by: Lester Perez MD 11/23/2017 4:25 PM EDT
--- NOTE | 2017-11-23 16:28 | RADRPT ---
EXAM DATE: 11/23/2017 4:06 PM EDT AGE/SEX: 32 years / Female INDICATIONS: Pain. Fell one week ago. CLINICAL DATA: This is the patient's initial encounter. Patient reports that signs and symptoms have been present for 2 days and indicates a pain score of 8/10. MEDICAL/SURGICAL HISTORY: Asthma. None. COMPARISON: No prior exams available for comparison. FINDINGS: A single view of the spine was performed. There is normal alignment of the vertebral bodies without evidence of subluxation. Vertebral body height and disc space height is maintained. CONCLUSION: Early degenerative disc disease. No acute findings. Electronically signed by: Lester Perez MD 11/23/2017 4:26 PM EDT
[2017-11-23] MEDS ORDERED: IBUP-232 PO (17:54)
--- NOTE | 2017-11-24 13:59 | EKG ---
Date Performed: 11/23/2017 Time Performed: 13:40:36 PTAGE: 32 years EKG: Sinus rhythm NORMAL ECG PREVIOUS TRACING : 11/27/2016 13.55 Since the previous tracing, no significant change noted DOCTOR: Sammy Maria Interpretating Date/Time 11/24/2017 13:53:51
== END 2017-11-23 18:15 | disposition home or self-care (01) ==
LOC: NEPC 13:19
DX: R07.89 Other chest pain (principal); M94.0 Chondrocostal junction syndrome [Tietze]; R06.02 Shortness of breath; J02.9 Acute pharyngitis, unspecified; J45.909 Unspecified asthma, uncomplicated
CPT/HCPCS: 71046; 72020; 80053; 82550; 82552; 83735; 84484; 85025; 85379; 85610; 85730; 87081; 87880; 93005; 96361; 96374; 99285; J1885; J7040